=== PATIENT | male | born 1990 | race Two or more races ===

== ENCOUNTER 2019-06-25 17:43 | Emergency (ER) | payer SELFPAY ==
[~2019-06-25] VITALS: Ht 172.7 cm; Wt 101.6 kg
[2019-06-25 17:56] VITALS: BP 142/81
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
[2019-06-25] MEDS ORDERED: NORCO 5-325 TA1 EAC1 ORAL (18:53)
[2019-06-25] MEDS ORDERED: IBUPROFEN600 M1 ORAL (18:53)
--- NOTE | 2019-06-25 18:54 | Diagnostic Imaging Report ---
EXAM: XR Right Hand Complete, 3 or More Views CLINICAL HISTORY: PAIN TECHNIQUE: Frontal, lateral and oblique views of the right hand. COMPARISON: No relevant prior studies available. FINDINGS: Bones/joints: Intra-articular fracture through the base of the fourth metacarpal. Nondisplaced fracture through the lateral aspect of the hamate. No dislocation. Soft tissues: Lateral soft tissue edema. No radiopaque foreign body. IMPRESSION: 1. Intra-articular fracture through the base of the fourth metacarpal. 2. Nondisplaced fracture through the lateral aspect of the hamate.
[2019-06-25 19:00] VITALS: BP 142/81
== END 2019-06-25 19:01 | disposition home or self-care (01) ==
LOC: EMR 18:02
DX: S62.339A Displaced fracture of neck of unspecified metacarpal bone, initial encounter for closed fracture (principal); Y09 Assault by unspecified means
CPT/HCPCS: 29125; 99283

== ENCOUNTER 2019-06-30 13:43 | Emergency (ER) | payer SELFPAY ==
[~2019-06-30] VITALS: Ht 172.7 cm; Wt 99.8 kg
[~2019-06-30 13:43] MED LIST: IBUPROFEN600 M1 ORAL; NORCO 5-325 TA1 EAC1 ORAL
--- NOTE | 2019-06-30 14:55 | Emergency Room Report ---
History of Present Illness General Chief Complaint: Pain Source: Patient Present Illness HPI 29-year-old male presents to the emergency department complaining of 8 out of 10 severity pain in the right hand x2 days. Patient reports that he removed his splint on his own because he said it was "uncomfortable "patient states he does have a follow-up appointment with orthopedic referral that he was given on his initial ED visit. Patient was seen here in the emergency department previously for boxer's fracture of the right hand. Pt. denies additional trauma or fall. Pt. denies skin color changes or pain out of proportion. Pt. has been taking prescribed pain medications. As disclosed at this last visit pt. is right hand dominant. Pt. is requesting a new splint. Allergies: Coded Allergies: No Known Allergies (Unverified , 06/25/19) COVID-19 Screening Contact w/high risk pt: No Recent Travel to affected area: No Experienced COVID-19 symptoms?: No Patient History Past Medical History: see triage record Past Surgical History: none Pertinent Family History: none Reviewed Nursing Documentation: PMH: Agreed; PSxH: Agreed Nursing Documentation-PMH Past Medical History: No Stated History Review of Systems All Other Systems: negative except mentioned in HPI Physical Exam Vital Signs Date Time Temp Pulse Resp B/P (MAP) Pulse Ox O2 Delivery O2 Flow Rate FiO2 06/30/19 14:03 98.4 72 16 136/87 (103) 98 Room Air Sp02 EP Interpretation: reviewed, normal General Appearance: no apparent distress, alert, GCS 15, non-toxic Head: normocephalic, atraumatic Eyes: bilateral eye normal inspection, bilateral eye PERRL ENT: hearing grossly normal, normal voice Neck: full range of motion Respiratory: chest non-tender, lungs clear, normal breath sounds, speaking full sentences Cardiovascular #1: regular rate, rhythm, normal capillary refill Cardiovascular #2: 2+ radial (R) Musculoskeletal: normal range of motion, gait/station normal, tender - Right hand lateral aspect, swelling - right hand, no finger involvement., other - NVI , ulnar and radial nerves intact, no evidence of wrist drop. Neurologic: alert, motor strength/tone normal, oriented x3, sensory intact, responsive, speech normal, grossly normal, other - NVI Psychiatric: judgement/insight normal Skin: normal color Medical Decision Making PA Attestation Dr. Burns is my supervising Physician whom patient management has been discussed with. Diagnostic Impression: Primary Impression: Closed boxer's fracture Qualified Codes: S62.339S - Displaced fracture of neck of unspecified metacarpal bone, sequela Additional Impression: Problem with immobilizing cast ER Course 29-year-old male presents to the emergency department complaining of 8 out of 10 severity pain in the right hand x2 days. Patient reports that he removed his splint on his own because he said it was "uncomfortable "patient states he does have a follow-up appointment with orthopedic referral that he was given on his initial ED visit. Patient was seen here in the emergency department previously for boxer's fracture of the right hand. Pt. denies additional trauma or fall. Pt. denies skin color changes or pain out of proportion. Pt. has been taking prescribed pain medications. As disclosed at this last visit pt. is right hand dominant. Pt. is requesting a new splint. Ddx considered but are not limited to Fracture, dislocation, contusion, Sprain/ Strain/Spasm. Vital signs: are WNL, pt. is afebrile H&PE are most consistent with musculoskeletal injury will perform imaging to r/ o fractures/dislocations. ORDERS: - none required at this time. Pt. had no new trauma, and has orthopedic hand specialist appt. on . ED INTERVENTIONS: - Right hand ulnar gutter Splint applied by refinery technician. Pt. remains neurovascularly intact. I discussed with this patient that he has the potential of significant complications due to removing his splint on his own without medical recommendation 2. I discussed with this patient that as he is right-hand dominant this could severely affected him moving forward and could cause permanent disability. Patient verbalized his understanding of the risks that he assumed as well as potential problems that may arise in the future. I discussed with this patient that he needs to discuss with his orthopedic radiologic technologist and he should not remove the splint that we are applying here in the emergency department today. I discussed with him that we will not be responsible for any mental or physical complications that arise from his decision to do so. DISCHARGE: At this time pt. is stable for d/c to home. Will provide printed patient care instructions, and any necessary prescriptions. Care plan and follow up instructions have been discussed with the patient prior to discharge. Last Vital Signs Date Time Temp Pulse Resp B/P (MAP) Pulse Ox O2 Delivery O2 Flow Rate FiO2 06/30/19 14:03 98.4 72 16 136/87 (103) 98 Room Air Disposition: HOME, SELF-CARE Condition: Stable Referrals: Orthopedic Urgent Care Patient Instructions: Boxer's Fracture Additional Instructions: DO NOT REMOVE YOUR SPLINT UNTIL INSTRUCTED TO DO SO BY A LICENSED MEDICAL PROFESSIONAL Removal can result in permanent disability . Take previously prescribed medications as directed. Follow up with an DEPUTY SHERIFF in 3-5 days, even if your symptoms have resolved. ORTHOPEDIC URGENT CARE -- INfo provided below or on next page. Return sooner to ED if new symptoms occur, or current symptoms become worse. - Please note that this Emergency Department Report was dictated using [employer] technology software, occasionally this can lead to erroneous entry secondary to interpretation by the dictation equipment. Naty Fernandez Jun 30, 2019 14:55
[2019-06-30 15:10] VITALS: BP 136/87
--- NOTE | 2019-06-30 15:10 | NUR ---
ER DISCHARGE NOTE: Patient is cleared to be discharged per ERMD, pt is aox4, on room air, with stable vital signs. pt was given dc instructions, pt was able to verbalize understanding, pt is able to ambulate with steady gait. pt took all belongings.
== END 2019-06-30 15:10 | disposition home or self-care (01) ==
LOC: EMR 15:01
DX: S62.339 Displaced fracture of neck of unspecified metacarpal bone (principal); X58.XXXS Exposure to other specified factors, sequela
CPT/HCPCS: 29125; 99282